=== PATIENT | male | born 1980 | race Two or more races ===

== ENCOUNTER 2019-07-30 12:10 | Emergency (ER) | payer MEDICAID ==
[~2019-07-30] VITALS: Ht 172.7 cm; Wt 94.3 kg
--- NOTE | 2019-07-30 12:33 | NUR ---
Patient is going to start taking meds for DM. Patient is not currently taking any meds.
--- NOTE | 2019-07-30 12:45 | NUR ---
ED Nurse Note: Pt walked into ED w/ c/o blurry vision L eye for 2 days. Pt is alert and orientedx4, ambulatory. Pt visual acuity is 20/30 in bilateral eyes. Pt states he does not have CHIN or other complaint. Conjunctiva is white.
--- NOTE | 2019-07-30 12:59 | Emergency Room Report ---
History of Present Illness General Chief Complaint: Eye Problems Source: Patient Present Illness HPI 39-year-old male with history of type 2 diabetes which is just fine.he has has not started his metformin yet here complaining of 3 days of irritation in the left eye. Patient reports that he sees blurry when he is looking at the center of the visual field however when that object moves to the side he can see better. Denies any curtainlike vision. Denies any trauma to the eye. Denies photophobia, headache and dizziness. Reports that he was at the doctor last week and blood work showed that he is diabetic and he was called metformin earlier however he has not picked up from the pharmacy yet. Patient is a [place] speaker, and I had Padmini from registration translate for me patient fully understood. Patient was able to see with central vision however would not be able to read all the names and letters for distinguish between color of eye and here. In no distress. Denies any fever chills or recent travel COVID-19 risk:Travel to affect: No Has patient experienced gallegos: No Allergies: Coded Allergies: No Known Allergies (Unverified , 07/30/19) Patient History Past Medical History: see triage record Past Surgical History: none Pertinent Family History: none Immunizations: UTD Reviewed Nursing Documentation: PMH: Agreed; PSxH: Agreed Nursing Documentation-PMH Past Medical History: No Stated History Review of Systems All Other Systems: negative except mentioned in HPI Physical Exam Vital Signs Date Time Temp Pulse Resp B/P (MAP) Pulse Ox O2 Delivery O2 Flow Rate FiO2 07/30/19 12:29 98.4 63 16 127/77 (94) 95 Room Air Sp02 EP Interpretation: reviewed, normal General Appearance: no apparent distress, alert, GCS 15, non-toxic Head: normocephalic, atraumatic Eyes: left eye other - macular degenration; bilateral eye normal inspection, bilateral eye PERRL ENT: hearing grossly normal, normal pharynx, no angioedema, normal voice Neck: full range of motion, supple/symm/no masses Respiratory: chest non-tender, lungs clear, normal breath sounds, no rhonchi, no wheezing, speaking full sentences Cardiovascular #1: regular rate, rhythm, no edema, no murmur Gastrointestinal: normal bowel sounds, non tender, soft, non-distended, no guarding, no rebound Rectal: deferred Genitourinary: no CVA tenderness Neurologic: alert, oriented Psychiatric: normal inspection, judgement/insight normal Skin: no rash Lymphatic: no adenopathy Medical Decision Making PA Attestation All my diagnosis and treatment plans were reviewed ad discussed with my supervising physician Dr. Lyles Diagnostic Impression: Primary Impression: Macular degeneration Additional Impression: Blurred vision, left eye ER Course 39-year-old male with history of type 2 diabetes which is just fine.he has has not started his metformin yet here complaining of 3 days of irritation in the left eye. Patient reports that he sees blurry when he is looking at the center of the visual field however when that object moves to the side he can see better. Denies any curtainlike vision. Denies any trauma to the eye. Denies photophobia, headache and dizziness. Reports that he was at the doctor last week and blood work showed that he is diabetic and he was called metformin earlier however he has not picked up from the pharmacy yet. Patient is a [place] speaker, and I had Padmini from registration translate for me patient fully understood. Patient was able to see with central vision however would not be able to read all the names and letters for distinguish between color of eye and here. In no distress. Denies any fever chills or recent travel Patient denies pressure in the Ddx considered but are not limited to: Macular degeneration, retinal detachment , glaucoma bacterial conjunctivitis, allergic conjunctivitis, viral conjunctivitis, periorbital cellulitis, global trauma Vital signs: are WNL, pt. is afebrile H&PE are most consistent with: Possible macular degeneration of left eye, blurry vision ORDERS: No procedure needed today, patient regular creatinine is 20/30, also is within normal limits ED INTERVENTIONS: None required at this time. DISCHARGE: At this time pt. is stable for d/c to home. Will provide printed patient care instructions, and any necessary prescriptions. Care plan and follow up instructions have been discussed with the patient prior to discharge. Patient to follow-up primary doctor for referral to charter driver given. Patient does not have any obvious retinal detachment. If worsening symptoms return to emergency room Last Vital Signs Date Time Temp Pulse Resp B/P (MAP) Pulse Ox O2 Delivery O2 Flow Rate FiO2 07/30/19 12:29 98.4 63 16 127/77 (94) 95 Room Air Disposition: HOME, SELF-CARE Condition: Stable Scripts Unable to Obtain Active Prescriptions or Reported Meds Referrals: NOT CHOSEN IPA/MD,REFERRING (PCP) Patient Instructions: Age-Related Macular Degeneration, Blurred Vision Additional Instructions: Follow-up with your charter driver take your diabetes medication, if worsening symptoms return to the emergency room. Araceli Acevedo Jul 30, 2019 12:59
[2019-07-30 13:00] VITALS: BP 123/75
[2019-07-30 13:21] VITALS: BP 127/72
--- NOTE | 2019-07-30 13:22 | NUR ---
ER DISCHARGE NOTE: Patient is cleared to be discharged per ERMD, pt is aox4, on room air, with stable vital signs. pt was given dc and prescription instructions, pt was able to verbalize understanding, pt id band removed. pt is able to ambulate with steady gait. pt took all belongings.
== END 2019-07-30 13:22 | disposition home or self-care (01) ==
LOC: EMR 12:44
DX: H35.30 Unspecified macular degeneration (principal); H53.8 Other visual disturbances
CPT/HCPCS: 82962; Z7502; 99281